=== PATIENT | male | born 1950 | race Caucasian/White ===

== ENCOUNTER 2017-01-13 11:07 | Emergency (ER) | payer MEDICARE ==
[2017-01-13] MEDS ORDERED: PREDNISONE 20 MG TABLET ONE (11:52)
== END 2017-01-13 12:16 | disposition home or self-care (01) ==
LOC: ED 11:07
DX: M54.12 Radiculopathy, cervical region (principal); F17.210 Nicotine dependence, cigarettes, uncomplicated